=== PATIENT | female | born 1990 | race Caucasian/White ===

== ENCOUNTER 2023-10-10 18:56 | Emergency (ER) | payer OTHER ==
[~2023-10-10] VITALS: Ht 172.7 cm; Wt 97.7 kg
[2023-10-10 19:08] VITALS: BP 136/91; PULSE 78; O2SAT 98
[2023-10-10 20:52] VITALS: RESP 16
[2023-10-10] MEDS: ketorolac trometh. 30mg/ml inj. IM ONE (20:52)
[2023-10-10] MEDS ORDERED: CLIN300C3 PO (21:00)
[2023-10-10 21:06] VITALS: TEMP 98.3
[2023-10-11] MEDS ORDERED: CLIN300C3 PO (19:33)
== END 2023-10-10 21:07 | disposition home or self-care (01) ==
LOC: ER 18:57
DX: K02.9 Dental caries, unspecified (principal); K08.89 Other specified disorders of teeth and supporting structures; Z88.0 Allergy status to penicillin; Z88.8 Allergy status to other drugs, medicaments and biological substances; Z79.2 Long term (current) use of antibiotics
CPT/HCPCS: 96372; 99283; J1885